=== PATIENT | female | born 1985 | race Caucasian/White ===

== ENCOUNTER → 2017-10-28 | Outpatient (CLI) | payer BC | LOC: COL.PUL 10-27 08:00 | DX: R05 Cough (principal) ==

== ENCOUNTER → 2020-10-17 | Outpatient (CLI) | payer BC ==
[~2020-10-17] MED LIST: TESSALON P100 MG/CAP PO
== END ==
LOC: COL.CARD 08:00
DX: I49.3 Ventricular premature depolarization (principal); I49.8 Other specified cardiac arrhythmias

== ENCOUNTER 2020-11-13 17:37 | Emergency (ER) | payer BC ==
[~2020-11-13] VITALS: Ht 170.2 cm; Wt 113.2 kg
[2020-11-13 17:40] VITALS: TEMP 98.2
[2020-11-13] MEDS ORDERED: TESSALON P100 MG/CAP PO (19:03)
[2020-11-13 20:08] VITALS: BP 150/90; PULSE 78
== END 2020-11-13 20:15 | disposition home or self-care (01) ==
LOC: COL.ER 17:37
DX: J45.909 Unspecified asthma, uncomplicated (principal); J06.9 Acute upper respiratory infection, unspecified; Z88.2 Allergy status to sulfonamides